=== PATIENT | male | born 1940 | race Two or more races ===

== ENCOUNTER 2025-06-30 20:03 | Inpatient (IN) | payer MEDICARE, OTHER ==
[~2025-06-30] VITALS: Ht 172.7 cm; Wt 68.0 kg
[2025-06-30 20:00] VITALS: BP 154/100; TEMP 98.8; O2SAT 97
[2025-06-30] MEDS ORDERED: ONDANSETRON HCL/PF 4 MG/2 ML VIAL IVP PRN (22:30)
[2025-06-30] MEDS ORDERED: MAGNESIUM HYDROXIDE 30 ML UDC PO PRN (22:30)
[2025-06-30] MEDS ORDERED: MAG HYDROX/AL HYDROX/SIMETH 30 ML UDC PO PRN (22:30)
[2025-06-30] MEDS: CEFTRIAXONE 1GM BAG (ER ONLY) 50 ML IV ONE (22:36)
[2025-06-30] MEDS: CEFTRIAXONE 1 G in IV D5W 50 ML IV SCH (22:47)
[2025-07-01 01:10] VITALS: BP 150/82; TEMP 98.7; O2SAT 97
[2025-07-01 05:00] VITALS: BP 150/82; TEMP 98.7; O2SAT 97
[2025-07-01] MEDS: BLOOD SUGAR DIAGNOSTIC 1 EACH STRIP IN SCH (06:43)
[2025-07-01] MEDS: INSULIN REGULAR, HUMAN 100 UNIT/ML 3 ML VIAL SQ PRN (06:44)
[2025-07-01 07:02] LABS: PLATELET COUNT (AUTO) 99 K/uL (150-450); RED BLOOD CELL COUNT(AUTO) 3.56 MIL/uL (4.5-6.0); RED CELL DISTRIBUTION WIDTH 16.2 % (11.5-15.0); WHITE BLOOD COUNT (AUTO) 5.6 K/uL (4.3-11.0)
[2025-07-01 07:11] LABS: LDL 89.0 mg/dL (0-99); SERUM AMMONIA 23.0 umol/L (11-32)
[2025-07-01 07:30] VITALS: BP 158/93; TEMP 98.2; O2SAT 97
[2025-07-01] MEDS: PANTOPRAZOLE 40 MG VIAL IV SCH (09:06)
[2025-07-01] MEDS: LACTULOSE 10 G/15 ML UDC (PYXIS) PO SCH (09:18)
[2025-07-01 12:01] LABS: EOSINOPHILS % (MANUAL) 5 % (0-4); LYMPHOCYTES % (MANUAL) 14 % (16-48); MONOCYTES % (MANUAL) 1 % (0-11.0); NEUTROPHILS % (MANUAL) 80 (42-76); PLATELET ESTIMATE DECREASED
[2025-07-01 13:29] LABS: CALCIUM, SERUM 8.3 mg/dL (8.5-10.1); CREATININE 1.3 mg/dL (0.6-1.3); PHOSPHORUS 3.5 mg/dL (2.5-4.9); UREA NITROGEN, BLOOD 15.0 mg/dL (7-18)
[2025-07-01 13:42] LABS: SODIUM SERUM 158.0 mmol/L (136-145)
[2025-07-01 16:00] VITALS: BP 146/82; TEMP 98.1; O2SAT 98
[2025-07-01] MEDS: IV 1/2NS 1000 ML 1,000 ML IV SCH (16:37)
[2025-07-01] MEDS: POTASSIUM CHLORIDE 20 MEQ TAB.PRT.SR PO ONE (16:37)
[2025-07-01 21:01] VITALS: BP 134/72; TEMP 98.4; O2SAT 98
[2025-07-02 04:00] VITALS: BP 141/61; TEMP 97.5; O2SAT 98
[2025-07-02 07:23] LABS: PLATELET COUNT (AUTO) 95 K/uL (150-450); RED BLOOD CELL COUNT(AUTO) 3.49 MIL/uL (4.5-6.0); RED CELL DISTRIBUTION WIDTH 15.8 % (11.5-15.0); WHITE BLOOD COUNT (AUTO) 5.7 K/uL (4.3-11.0)
[2025-07-02 07:36] LABS: CALCIUM, SERUM 7.8 mg/dL (8.5-10.1); CREATININE 1.2 mg/dL (0.6-1.3); PHOSPHORUS 2.7 mg/dL (2.5-4.9); UREA NITROGEN, BLOOD 17.0 mg/dL (7-18)
[2025-07-02 08:00] VITALS: BP 134/64; TEMP 97.9; O2SAT 94
[2025-07-02 08:26] LABS: SODIUM SERUM 156.0 mmol/L (136-145)
[2025-07-02] MEDS: IV D5W 1,000 ML IV PRN (09:27)
[2025-07-02 11:03] LABS: EOSINOPHILS % (MANUAL) 5 % (0-4); LYMPHOCYTES % (MANUAL) 10 % (16-48); MONOCYTES % (MANUAL) 2 % (0-11.0); NEUTROPHILS % (MANUAL) 83 (42-76); PLATELET ESTIMATE DECREASED
[2025-07-02 12:00] VITALS: BP 135/65; TEMP 98.1; O2SAT 98
[2025-07-02 16:00] VITALS: BP 124/65; TEMP 98.1; O2SAT 100
[2025-07-02] MEDS ORDERED: DAPA10TA PO (16:49)
[2025-07-02] MEDS ORDERED: SITA100T PO (16:49)
[2025-07-02] MEDS ORDERED: ACET-2812 PO (16:49)
[2025-07-02] MEDS ORDERED: METF-442 PO (16:49)
[2025-07-02] MEDS: IV 1/2NS 1000 ML 1,000 ML IV PRN (18:01)
[2025-07-02 20:00] VITALS: BP 118/77; TEMP 98.1; O2SAT 97
[2025-07-02] MEDS ORDERED: CEFEPIME 1 GM VIAL ONE (21:31)
[2025-07-02] MEDS: CEFEPIME 1 GM in IV D5W 50 ML IV SCH (21:42)
[2025-07-02] MEDS: DEXTROSE 50%-WATER 50 ML DISP.SYRIN IV PRN (22:07)
[2025-07-03] VITALS (9 sets, daily range): BP systolic 110–130; BP diastolic 51–72; TEMP 97.7–100.9; O2SAT 92–98
[2025-07-03 06:21] LABS: PLATELET COUNT (AUTO) 77 K/uL (150-450); RED BLOOD CELL COUNT(AUTO) 3.47 MIL/uL (4.5-6.0); RED CELL DISTRIBUTION WIDTH 15.4 % (11.5-15.0); WHITE BLOOD COUNT (AUTO) 4.0 K/uL (4.3-11.0)
[2025-07-03 06:37] LABS: CALCIUM, SERUM 7.5 mg/dL (8.5-10.1); CREATININE 1.3 mg/dL (0.6-1.3); SODIUM SERUM 151.0 mmol/L (136-145); UREA NITROGEN, BLOOD 15.0 mg/dL (7-18)
[2025-07-03 07:24] LABS: LYMPHOCYTES % (MANUAL) 4 % (16-48); MONOCYTES % (MANUAL) 3 % (0-11.0); NEUTROPHILS % (MANUAL) 91 (42-76); PLATELET ESTIMATE DECREASED
[2025-07-03] MEDS: PANTOPRAZOLE 40 MG TABLET.DR PO SCH (10:14)
[2025-07-03] MEDS: ACETAMINOPHEN 325 MG TABLET PO PRN (10:21)
[2025-07-03 14:52] LABS: APPEARANCE,URINE CLEAR (CLEAR); BLOOD, URINE TRACE-INTA Ery/uL (NEGATIVE); LEUKOCYTE ESTERASE ,URINE 3+ (NEGATIVE); NITRITE, URINE NEGATIVE (NEGATIVE); UGLUCOSE NEGATIVE (NEGATIVE)
[2025-07-03 14:58] LABS: ADD URINE CULTURE YES
[2025-07-04] VITALS (9 sets, daily range): BP systolic 114–128; BP diastolic 60–96; TEMP 98.1–99.9; O2SAT 93–98
[2025-07-04 05:54] LABS: PLATELET COUNT (AUTO) 65 K/uL (150-450); RED BLOOD CELL COUNT(AUTO) 3.06 MIL/uL (4.5-6.0); RED CELL DISTRIBUTION WIDTH 15.7 % (11.5-15.0); WHITE BLOOD COUNT (AUTO) 3.9 K/uL (4.3-11.0)
[2025-07-04 06:04] LABS: CALCIUM, SERUM 7.3 mg/dL (8.5-10.1); CREATININE 1.5 mg/dL (0.6-1.3); SODIUM SERUM 154.0 mmol/L (136-145); UREA NITROGEN, BLOOD 25.0 mg/dL (7-18)
[2025-07-04] MEDS: D5W IV ONE (09:03)
[2025-07-04 09:24] LABS: BASOPHILS % (MANUAL) 0 % (0.0-2.0); EOSINOPHILS % (MANUAL) 0 % (0-4); LYMPHOCYTES % (MANUAL) 8 % (16-48); MONOCYTES % (MANUAL) 2 % (0-11.0); NEUTROPHILS % (MANUAL) 90 (42-76); PLATELET ESTIMATE DECREASED
[2025-07-04] MEDS: ALBUMIN 25% 25 GM in PREMIX 1 EA IV SCH (10:20)
[2025-07-04] MEDS: THERAHONEY GEL 1.5 OZ TUBE TP SCH (10:21)
[2025-07-04] MEDS: IV D5W 1,000 ML IV PRN (16:54)
[2025-07-04] MEDS: ALBUTEROL FS 2.5 MG/3 ML VIAL.NEB NEB PRN (17:37)
[2025-07-05] VITALS (21 sets, daily range): BP systolic 90–116; BP diastolic 46–103; TEMP 98.1–98.9; O2SAT 90–100
[2025-07-05 05:30] LABS: ABG BASE EXCESS -9.0 mmol/L (-2.0-3.0); ABG OXYGEN SATURATION 86.9 % (94.0-98.0); ABG PCO2 19.7 mmHg (35.0-48.0); ABG PH 7.450 (7.350-7.450); ABG PO2 53.1 mmHg (83.0-108.0); ABG TOTAL HEMOGLOBIN 9.5 G/dL (13.5-17.5); FLOW, BLOOD GAS 2.00 L/min (0.00-30.00); FRACTIONATED INSPIRED OXYGEN 28.0 %; SITE, ABG RIGHT RADIAL
[2025-07-05 07:35] LABS: PLATELET COUNT (AUTO) 57 K/uL (150-450); RED BLOOD CELL COUNT(AUTO) 2.82 MIL/uL (4.5-6.0); RED CELL DISTRIBUTION WIDTH 16.2 % (11.5-15.0); WHITE BLOOD COUNT (AUTO) 2.7 K/uL (4.3-11.0)
[2025-07-05 07:42] LABS: CALCIUM, SERUM 7.6 mg/dL (8.5-10.1); CREATININE 1.5 mg/dL (0.6-1.3); SODIUM SERUM 153.0 mmol/L (136-145); UREA NITROGEN, BLOOD 27.0 mg/dL (7-18)
[2025-07-05] MEDS: IPRATROPIUM NEB FS 0.5 MG/2.5 ML AMPUL.NEB NEB SCH (10:00)
[2025-07-05] MEDS ORDERED: DOSING PER PHARMACY-VANCOMYCIN IV XX PRN (10:00)
[2025-07-05] MEDS: ALBUTEROL HALF STRENGTH 1.25 MG/3 ML VIAL.NEB NEB SCH (10:00)
[2025-07-05 10:11] LABS: EOSINOPHILS % (MANUAL) 2 % (0-4); LYMPHOCYTES % (MANUAL) 9 % (16-48); MONOCYTES % (MANUAL) 6 % (0-11.0); NEUTROPHILS % (MANUAL) 83 (42-76); PLATELET ESTIMATE DECREASED
[2025-07-05] MEDS: VANCOMYCIN 750 MG in IV D5W 250 ML IV SCH (10:27)
[2025-07-05] MEDS: IV D5W 1,000 ML IV ONE (13:44)
[2025-07-05] MEDS: CEFEPIME 2 GM in IV D5W 100 ML IV SCH (20:47)
[2025-07-05 20:56] LABS: ABG BASE EXCESS -7.4 mmol/L (-2.0-3.0); ABG OXYGEN SATURATION 82.3 % (94.0-98.0); ABG PCO2 20.4 mmHg (35.0-48.0); ABG PH 7.472 (7.350-7.450); ABG PO2 44.6 mmHg (83.0-108.0); ABG TOTAL HEMOGLOBIN 10.2 G/dL (13.5-17.5); FLOW, BLOOD GAS 10.00 L/min (0.00-30.00); FRACTIONATED INSPIRED OXYGEN 60.0 %; SITE, ABG RIGHT RADIAL
[2025-07-06] VITALS (65 sets, daily range): BP systolic 79–135; BP diastolic 45–118; TEMP 98–98.8; O2SAT 88–100
[2025-07-06 05:03] LABS: SERUM AMMONIA 25.0 umol/L (11-32)
[2025-07-06 05:05] LABS: PLATELET COUNT (AUTO) 62 K/uL (150-450); RED BLOOD CELL COUNT(AUTO) 2.94 MIL/uL (4.5-6.0); RED CELL DISTRIBUTION WIDTH 16.1 % (11.5-15.0); WHITE BLOOD COUNT (AUTO) 4.7 K/uL (4.3-11.0)
[2025-07-06 05:51] LABS: IRON, SERUM 13.0 ug/dl (50-175)
[2025-07-06 05:52] LABS: LYMPHOCYTES % (MANUAL) 10 % (16-48); MONOCYTES % (MANUAL) 5 % (0-11.0); NEUTROPHILS % (MANUAL) 85 (42-76); PLATELET ESTIMATE DECREASED
[2025-07-06 06:12] LABS: ASPARTATE AMINOTRANSFERASE 77.0 U/L (15-37); CALCIUM, SERUM 7.3 mg/dL (8.5-10.1); CREATININE 1.2 mg/dL (0.6-1.3); PHOSPHORUS 1.2 mg/dL (2.5-4.9); SODIUM SERUM 147.0 mmol/L (136-145); TOTAL PROTEIN, SERUM 5.0 g/dL (6.4-8.2); UREA NITROGEN, BLOOD 25.0 mg/dL (7-18)
[2025-07-06] MEDS: VANCOMYCIN 1 GM in IV D5W 250 ML IV SCH (09:17)
[2025-07-06 09:19] LABS: ABG BASE EXCESS -7.5 mmol/L (-2.0-3.0); ABG OXYGEN SATURATION 83.0 % (94.0-98.0); ABG PCO2 22.6 mmHg (35.0-48.0); ABG PH 7.444 (7.350-7.450); ABG PO2 47.3 mmHg (83.0-108.0); ABG TOTAL HEMOGLOBIN 9.6 G/dL (13.5-17.5); FLOW, BLOOD GAS 10.00 L/min (0.00-30.00); FRACTIONATED INSPIRED OXYGEN 60.0 %
[2025-07-06] MEDS: ACETAMINOPHEN 650 MG/SUPP.RECT RC PRN (09:25)
[2025-07-06] MEDS: ALBUMIN 25% 25 GM in PREMIX 1 EA IV SCH (14:35)
[2025-07-06] MEDS: NOREPINEPHRINE 8 MG in IV NS 0.9% 242 ML IV PRN (14:55)
[2025-07-06] MEDS: Sodium Phosphate 15 MMOL in IV NS 0.9% 245 ML IV SCH (16:12)
[2025-07-07] VITALS (95 sets, daily range): BP systolic 79–147; BP diastolic 44–93; TEMP 97.6–98.6; O2SAT 58–100
[2025-07-07 04:31] LABS: PLATELET COUNT (AUTO) 85 K/uL (150-450); RED BLOOD CELL COUNT(AUTO) 3.48 MIL/uL (4.5-6.0); RED CELL DISTRIBUTION WIDTH 17.0 % (11.5-15.0); WHITE BLOOD COUNT (AUTO) 5.0 K/uL (4.3-11.0)
[2025-07-07 04:56] LABS: CALCIUM, SERUM 6.9 mg/dL (8.5-10.1); CREATININE 1.2 mg/dL (0.6-1.3); PHOSPHORUS 2.9 mg/dL (2.5-4.9); SODIUM SERUM 147.0 mmol/L (136-145); UREA NITROGEN, BLOOD 26.0 mg/dL (7-18)
[2025-07-07 05:08] LABS: ASPARTATE AMINOTRANSFERASE 71.0 U/L (15-37); TOTAL PROTEIN, SERUM 5.0 g/dL (6.4-8.2)
[2025-07-07 05:09] LABS: SERUM AMMONIA 29.0 umol/L (11-32)
[2025-07-07 05:35] LABS: EOSINOPHILS % (MANUAL) 1 % (0-4); LYMPHOCYTES % (MANUAL) 12 % (16-48); MONOCYTES % (MANUAL) 4 % (0-11.0); NEUTROPHILS % (MANUAL) 83 (42-76); PLATELET ESTIMATE DECREASED
[2025-07-07] MEDS: VANCOMYCIN HCL 1.25 GM in IV D5W 250 ML IV SCH (09:12)
[2025-07-07 10:03] LABS: ABG BASE EXCESS -15.2 mmol/L (-2.0-3.0); ABG OXYGEN SATURATION 85.3 % (94.0-98.0); ABG PCO2 33.0 mmHg (35.0-48.0); ABG PH 7.179 (7.350-7.450); ABG PO2 58.0 mmHg (83.0-108.0); ABG TOTAL HEMOGLOBIN 11.9 G/dL (13.5-17.5); FLOW, BLOOD GAS 60.00 L/min (0.00-30.00); FRACTIONATED INSPIRED OXYGEN 90.0 %
[2025-07-07 13:56] LABS: ABG BASE EXCESS -15.7 mmol/L (-2.0-3.0); ABG OXYGEN SATURATION 96.7 % (94.0-98.0); ABG PCO2 28.3 mmHg (35.0-48.0); ABG PH 7.201 (7.350-7.450); ABG PO2 112.5 mmHg (83.0-108.0); ABG TOTAL HEMOGLOBIN 11.4 G/dL (13.5-17.5); FRACTIONATED INSPIRED OXYGEN 100.0 %; SET RATE, BG 18.0; SITE, ABG LEFT RADIAL
[2025-07-07] MEDS: SODIUM BICARBONATE SYR 50 MEQ/50 ML DISP.SYRIN IV ONE (15:03)
[2025-07-07] MEDS: Sodium Bicarbonate 100 MEQ in IV D5 / 0.2% NACL 1,000 ML IV SCH (15:29)
[2025-07-07 17:29] LABS: ABG BASE EXCESS -13.3 mmol/L (-2.0-3.0); ABG OXYGEN SATURATION 94.4 % (94.0-98.0); ABG PCO2 37.3 mmHg (35.0-48.0); ABG PH 7.191 (7.350-7.450); ABG PO2 83.7 mmHg (83.0-108.0); ABG TOTAL HEMOGLOBIN 11.2 G/dL (13.5-17.5); FRACTIONATED INSPIRED OXYGEN 100.0 %; SET RATE, BG 18.0; SITE, ABG LEFT BRACHIAL
[2025-07-07] MEDS: ALBUTEROL FS 2.5 MG/0.5 ML VIAL.NEB NEB ONE (18:30)
[2025-07-07 20:55] LABS: ABG BASE EXCESS -17.1 mmol/L (-2.0-3.0); ABG OXYGEN SATURATION 95.7 % (94.0-98.0); ABG PCO2 31.2 mmHg (35.0-48.0); ABG PH 7.147 (7.350-7.450); ABG PO2 97.0 mmHg (83.0-108.0); ABG TOTAL HEMOGLOBIN 11.0 G/dL (13.5-17.5); FRACTIONATED INSPIRED OXYGEN 100.0 %; SET RATE, BG 18.0; SITE, ABG LEFT RADIAL
[2025-07-08] VITALS (103 sets, daily range): BP systolic 76–150; BP diastolic 21–94; TEMP 96.4–98; O2SAT 92–100
[2025-07-08 01:05] LABS: ABG BASE EXCESS -16.3 mmol/L (-2.0-3.0); ABG OXYGEN SATURATION 94.7 % (94.0-98.0); ABG PCO2 31.6 mmHg (35.0-48.0); ABG PH 7.163 (7.350-7.450); ABG PO2 87.2 mmHg (83.0-108.0); ABG TOTAL HEMOGLOBIN 10.7 G/dL (13.5-17.5); FRACTIONATED INSPIRED OXYGEN 100.0 %; SET RATE, BG 18.0; SITE, ABG LEFT RADIAL
[2025-07-08 04:54] LABS: PLATELET COUNT (AUTO) 62 K/uL (150-450); RED BLOOD CELL COUNT(AUTO) 3.12 MIL/uL (4.5-6.0); RED CELL DISTRIBUTION WIDTH 17.7 % (11.5-15.0); WHITE BLOOD COUNT (AUTO) 7.1 K/uL (4.3-11.0)
[2025-07-08 04:58] LABS: CALCIUM, SERUM 6.8 mg/dL (8.5-10.1); CREATININE 2.2 mg/dL (0.6-1.3); SODIUM SERUM 145.0 mmol/L (136-145); UREA NITROGEN, BLOOD 43.0 mg/dL (7-18)
[2025-07-08 05:05] LABS: SERUM AMMONIA 27.0 umol/L (11-32)
[2025-07-08 05:10] LABS: ASPARTATE AMINOTRANSFERASE 119.0 U/L (15-37); PHOSPHORUS 3.7 mg/dL (2.5-4.9); TOTAL PROTEIN, SERUM 4.5 g/dL (6.4-8.2)
[2025-07-08 06:18] LABS: LYMPHOCYTES % (MANUAL) 5 % (16-48); MONOCYTES % (MANUAL) 4 % (0-11.0); NEUTROPHILS % (MANUAL) 91 (42-76); PLATELET ESTIMATE DECREASED
[2025-07-08] MEDS: DAPAGLIFLOZIN PROPANEDIOL 10 MG TABLET PO SCH (08:05)
[2025-07-08 08:38] LABS: ABG BASE EXCESS -12.2 mmol/L (-2.0-3.0); ABG OXYGEN SATURATION 95.0 % (94.0-98.0); ABG PCO2 35.4 mmHg (35.0-48.0); ABG PH 7.228 (7.350-7.450); ABG PO2 87.2 mmHg (83.0-108.0); ABG TOTAL HEMOGLOBIN 10.0 G/dL (13.5-17.5); FRACTIONATED INSPIRED OXYGEN 100.0 %; SET RATE, BG 18.0; SITE, ABG LEFT BRACHIAL
[2025-07-08] MEDS: PROPOFOL 100 ML IV PRN (09:41)
[2025-07-08] MEDS ORDERED: ETOMIDATE 2 MG/ML VIAL IV ONE (10:00)
[2025-07-08] MEDS ORDERED: SUCCINYLCHOLINE CHLORIDE 20 MG/ML VIAL IV ONE (10:00)
[2025-07-08 10:43] LABS: ABG BASE EXCESS -15.4 mmol/L (-2.0-3.0); ABG OXYGEN SATURATION 94.1 % (94.0-98.0); ABG PCO2 56.7 mmHg (35.0-48.0); ABG PH 7.039 (7.350-7.450); ABG PO2 94.7 mmHg (83.0-108.0); ABG TOTAL HEMOGLOBIN 10.7 G/dL (13.5-17.5); FRACTIONATED INSPIRED OXYGEN 100.0 %; PEEP,BG 5 cm H2O; SET RATE, BG 26.0; SITE, ABG PL; VT, ABG 475 mL
[2025-07-08 13:10] LABS: ABG BASE EXCESS -16.4 mmol/L (-2.0-3.0); ABG OXYGEN SATURATION 97.8 % (94.0-98.0); ABG PCO2 42.1 mmHg (35.0-48.0); ABG PH 7.092 (7.350-7.450); ABG PO2 139.4 mmHg (83.0-108.0); ABG TOTAL HEMOGLOBIN 10.3 G/dL (13.5-17.5); FRACTIONATED INSPIRED OXYGEN 100.0 %; PEEP,BG 5 cm H2O; SET RATE, BG 26.0; SITE, ABG LEFT RADIAL; VT, ABG 550 mL
[2025-07-08] MEDS: Sodium Bicarbonate 150 MEQ in IV D5 / 0.2% NACL 1,000 ML IV SCH (14:15)
[2025-07-08 15:11] LABS: ABG BASE EXCESS -16.7 mmol/L (-2.0-3.0); ABG OXYGEN SATURATION 94.1 % (94.0-98.0); ABG PCO2 44.7 mmHg (35.0-48.0); ABG PH 7.071 (7.350-7.450); ABG PO2 89.0 mmHg (83.0-108.0); ABG TOTAL HEMOGLOBIN 10.1 G/dL (13.5-17.5); FRACTIONATED INSPIRED OXYGEN 80.0 %; PEEP,BG 5 cm H2O; SET RATE, BG 26.0; VT, ABG 575 mL
[2025-07-08] MEDS: SODIUM BICARBONATE SYR 50 MEQ/50 ML DISP.SYRIN IV ONE (15:27)
[2025-07-08 17:59] LABS: APPEARANCE,URINE SLIGHTLY CLOUDY (CLEAR); BLOOD, URINE 3+ Ery/uL (NEGATIVE); LEUKOCYTE ESTERASE ,URINE 1+ (NEGATIVE); NITRITE, URINE NEGATIVE (NEGATIVE); UGLUCOSE NEGATIVE (NEGATIVE)
[2025-07-08 18:00] LABS: CREATININE, URINE 104.6 MG/DL (30.0-125.0); URINE SODIUM, RANDOM 42.0 mmol/l (40-220); URINE TOTAL PROTEIN 229.5 mg/dL (0-11.9)
[2025-07-08] MEDS: BLOOD SUGAR DIAGNOSTIC 1 EACH STRIP IN SCH (18:01)
[2025-07-08 18:24] LABS: ADD URINE CULTURE YES; SQUAMOUS EPITHELIAL CELL,UR Moderate /HPF (None Seen); URINE AMORPHOUS URATE Moderate /HPF (None Seen)
[2025-07-08 19:07] LABS: EOSINOPHIL,URINE None Seen; YEAST,URINE Few /HPF (None Seen)
[2025-07-08 20:18] LABS: ABG BASE EXCESS -2.0 mmol/L (-2.0-3.0); ABG OXYGEN SATURATION 95.9 % (94.0-98.0); ABG PCO2 44.0 mmHg (35.0-48.0); ABG PH 7.348 (7.350-7.450); ABG PO2 84.4 mmHg (83.0-108.0); ABG TOTAL HEMOGLOBIN 10.3 G/dL (13.5-17.5); FRACTIONATED INSPIRED OXYGEN 80.0 %; PEEP,BG 5 cm H2O; SET RATE, BG 28.0; SITE, ABG RIGHT RADIAL; VT, ABG 600 mL
[2025-07-08] MEDS: VANCOMYCIN 750 MG in IV D5W 250 ML IV SCH (21:32)
[2025-07-08] MEDS: INSULIN REGULAR, HUMAN 100 UNIT/ML 3 ML VIAL SQ PRN (23:54)
[2025-07-09] VITALS (100 sets, daily range): BP systolic 53–139; BP diastolic 32–62; TEMP 97.4–98; O2SAT 90–100
[2025-07-09 05:02] LABS: PLATELET COUNT (AUTO) 89 K/uL (150-450); RED BLOOD CELL COUNT(AUTO) 2.67 MIL/uL (4.5-6.0); RED CELL DISTRIBUTION WIDTH 16.1 % (11.5-15.0); WHITE BLOOD COUNT (AUTO) 15.4 K/uL (4.3-11.0)
[2025-07-09 05:23] LABS: ASPARTATE AMINOTRANSFERASE 413.0 U/L (15-37); CALCIUM, SERUM 6.1 mg/dL (8.5-10.1); CREATININE 2.0 mg/dL (0.6-1.3); PHOSPHORUS 2.9 mg/dL (2.5-4.9); SODIUM SERUM 138.0 mmol/L (136-145); TOTAL PROTEIN, SERUM 4.0 g/dL (6.4-8.2); UREA NITROGEN, BLOOD 30.0 mg/dL (7-18)
[2025-07-09 05:56] LABS: LYMPHOCYTES % (MANUAL) 2 % (16-48); MONOCYTES % (MANUAL) 2 % (0-11.0); NEUTROPHILS % (MANUAL) 96 (42-76); PLATELET ESTIMATE DECREASED
[2025-07-09 09:28] LABS: ABG BASE EXCESS -3.7 mmol/L (-2.0-3.0); ABG OXYGEN SATURATION 92.3 % (94.0-98.0); ABG PCO2 38.8 mmHg (35.0-48.0); ABG PH 7.360 (7.350-7.450); ABG PO2 72.1 mmHg (83.0-108.0); ABG TOTAL HEMOGLOBIN 8.9 G/dL (13.5-17.5); FRACTIONATED INSPIRED OXYGEN 65.0 %; PEEP,BG 5 cm H2O; SET RATE, BG 28.0; SITE, ABG LEFT RADIAL; VT, ABG 600 mL
[2025-07-09] MEDS: IV NS 0.9% 1,000 ML IV SCH (10:19)
[2025-07-09] MEDS: Z GUARD REMEDY 4 OZ OINT TP PRN (11:48)
[2025-07-09] MEDS: NOREPINEPHRINE 32 MG in IV NS 0.9% 250 ML IV PRN ×2 (12:34→14:18)
[2025-07-09] MEDS: BUMETANIDE INJ 0.25 MG/ML VIAL IV ONE (13:51)
[2025-07-09] MEDS: ALBUMIN 25% 25 GM in PREMIX 1 EA IV PRN (18:02)
[2025-07-09] MEDS: MEROPENEM 500 MG in IV NS 0.9% 50 ML IV ONE (20:50)
[2025-07-09] MEDS: MEROPENEM 500MG/NS 50 ML PB IV ONE (20:51)
[2025-07-09] MEDS: NEPRO 1,000 ML BOTTLE GT PRN (22:55)
[2025-07-10] VITALS (98 sets, daily range): BP systolic 65–129; BP diastolic 35–65; TEMP 97.4–98.2; O2SAT 90–100
[2025-07-10 04:50] LABS: PLATELET COUNT (AUTO) 70 K/uL (150-450); RED BLOOD CELL COUNT(AUTO) 2.28 MIL/uL (4.5-6.0); RED CELL DISTRIBUTION WIDTH 16.6 % (11.5-15.0); WHITE BLOOD COUNT (AUTO) 12.8 K/uL (4.3-11.0)
[2025-07-10 05:23] LABS: CALCIUM, SERUM 6.4 mg/dL (8.5-10.1); CREATININE 2.1 mg/dL (0.6-1.3); PHOSPHORUS 3.4 mg/dL (2.5-4.9); SODIUM SERUM 142 mmol/L (136-145); TOTAL PROTEIN, SERUM 4.1 g/dL (6.4-8.2); UREA NITROGEN, BLOOD 30 mg/dL (7-18)
[2025-07-10 06:03] LABS: SERUM AMMONIA 47 umol/L (11-32)
[2025-07-10 06:20] LABS: ASPARTATE AMINOTRANSFERASE 348 U/L (15-37)
[2025-07-10] MEDS: MEROPENEM 500 MG in IV NS 0.9% 50 ML IV SCH (08:09)
[2025-07-10] MEDS ORDERED: CEFEPIME 1 GM in IV D5W 50 ML IV SCH (09:00)
[2025-07-10 09:27] LABS: ABG BASE EXCESS -7.2 mmol/L (-2.0-3.0); ABG OXYGEN SATURATION 84.0 % (94.0-98.0); ABG PCO2 89.0 mmHg (35.0-48.0); ABG PH 7.044 (7.350-7.450); ABG PO2 62.2 mmHg (83.0-108.0); ABG TOTAL HEMOGLOBIN 8.6 G/dL (13.5-17.5); FRACTIONATED INSPIRED OXYGEN 65.0 %; PEEP,BG 8 cm H2O; SET RATE, BG 20.0; SITE, ABG RIGHT RADIAL; VT, ABG 450 mL
[2025-07-10] MEDS: LACTULOSE 10 G/15 ML UDC (PYXIS) PO SCH (11:36)
[2025-07-10 11:42] LABS: ABG BASE EXCESS -7.9 mmol/L (-2.0-3.0); ABG OXYGEN SATURATION 87.7 % (94.0-98.0); ABG PCO2 68.8 mmHg (35.0-48.0); ABG PH 7.114 (7.350-7.450); ABG PO2 65.1 mmHg (83.0-108.0); ABG TOTAL HEMOGLOBIN 8.5 G/dL (13.5-17.5); FRACTIONATED INSPIRED OXYGEN 65.0 %; PEEP,BG 10 cm H2O; SET RATE, BG 26.0; SITE, ABG LEFT RADIAL; VT, ABG 500 mL
[2025-07-10 11:45] LABS: BASOPHILS % (MANUAL) 0 % (0.0-2.0); EOSINOPHILS % (MANUAL) 0 % (0-4); LYMPHOCYTES % (MANUAL) 3 % (16-48); MONOCYTES % (MANUAL) 6 % (0-11.0); NEUTROPHILS % (MANUAL) 91 (42-76); PLATELET ESTIMATE DECREASED
[2025-07-10] MEDS ORDERED: VANCOMYCIN POST DIALYSIS 500MG IV PRN (17:00)
[2025-07-11] VITALS (34 sets, daily range): BP systolic 34–121; BP diastolic 12–72; TEMP 97.1–98.5; O2SAT 54–97
[2025-07-11] MEDS: DEXTROSE 50%-WATER 50 ML DISP.SYRIN IV PRN (00:42)
[2025-07-11] MEDS: PHENYLEPHRINE 50 MG in IV NS 0.9% 245 ML IV PRN (04:56)
[2025-07-11] MEDS: HYDROCORTISONE SOD SUCCINATE 100 MG/2 ML VIAL IV ONE (04:59)
[2025-07-11 05:01] LABS: ABG BASE EXCESS -24.2 mmol/L (-2.0-3.0); ABG OXYGEN SATURATION 88.1 % (94.0-98.0); ABG PCO2 47.3 mmHg (35.0-48.0); ABG PH 6.827 (7.350-7.450); ABG PO2 80.6 mmHg (83.0-108.0); ABG TOTAL HEMOGLOBIN 5.8 G/dL (13.5-17.5); FRACTIONATED INSPIRED OXYGEN 100.0 %; PEEP,BG 14 cm H2O; SET RATE, BG 28.0; VT, ABG 500 mL
[2025-07-11 05:01] LABS: TOTAL PROTEIN, SERUM 4.1 g/dL (6.4-8.2)
[2025-07-11 05:04] LABS: SODIUM SERUM 130 mmol/L (136-145)
[2025-07-11 05:05] LABS: UREA NITROGEN, BLOOD 26 mg/dL (7-18)
[2025-07-11] MEDS: SODIUM BICARBONATE SYR 50 MEQ/50 ML DISP.SYRIN IV ONE ×2 (05:05→08:20)
[2025-07-11 05:06] LABS: PHOSPHORUS 8.8 mg/dL (2.5-4.9)
[2025-07-11 05:08] LABS: PLATELET COUNT (AUTO) 51 K/uL (150-450); RED BLOOD CELL COUNT(AUTO) 1.80 MIL/uL (4.5-6.0); RED CELL DISTRIBUTION WIDTH 17.7 % (11.5-15.0); WHITE BLOOD COUNT (AUTO) 15.9 K/uL (4.3-11.0)
[2025-07-11] MEDS: SODIUM BICARBONATE SYR 50 MEQ/50 ML DISP.SYRIN ONE (05:19)
[2025-07-11 05:20] LABS: SERUM AMMONIA 104 umol/L (11-32)
[2025-07-11] MEDS: PHENYLEPHRINE 10 MG/ML VIAL ONE (05:20)
[2025-07-11 05:22] LABS: CREATININE 2.6 mg/dL (0.6-1.3)
[2025-07-11 05:28] LABS: CALCIUM, SERUM 7.5 mg/dL (8.5-10.1)
[2025-07-11] MEDS ORDERED: Calcium Gluconate 1GM/10ML 4.65 MEQ in IV NS 0.9% 100 ML IV ONE (05:30)
[2025-07-11 05:46] LABS: ASPARTATE AMINOTRANSFERASE > 1000 U/L (15-37)
[2025-07-11] MEDS: Sodium Bicarbonate 100 MEQ in IV D5W 1,000 ML IV SCH (05:48)
[2025-07-11] MEDS: IV 10% DEXTROSE 1,000 ML IV SCH (05:48)
[2025-07-11] MEDS ORDERED: VASOPRESSIN INJ 40 UNIT in IV NS 0.9% 38 ML IV PRN (06:00)
[2025-07-11 06:09] LABS: LYMPHOCYTES % (MANUAL) 6 % (16-48); MONOCYTES % (MANUAL) 2 % (0-11.0); NEUTROPHILS % (MANUAL) 92 (42-76); PLATELET ESTIMATE DECREASED
[2025-07-11] MEDS: VASOPRESSIN INJ 40 UNIT in IV NS 0.9% 38 ML IV PRN (06:25)
[2025-07-11] MEDS: VASOPRESSIN INJ 20 UNIT/ML VIAL ONE (06:39)
[2025-07-11] MEDS: PHENYLEPHRINE 100 MG in IV NS 0.9% 240 ML IV PRN (07:24)
[2025-07-11 07:35] LABS: RED CELL DISTRIBUTION WIDTH 17.9 % (11.5-15.0); WHITE BLOOD COUNT (AUTO) 12.7 K/uL (4.3-11.0)
[2025-07-11 07:46] LABS: RED BLOOD CELL COUNT(AUTO) 1.22 MIL/uL (4.5-6.0)
[2025-07-11 07:51] LABS: PLATELET COUNT (AUTO) 39 K/uL (150-450)
[2025-07-11 07:56] LABS: CALCIUM, SERUM 7.7 mg/dL (8.5-10.1); CREATININE 2.9 mg/dL (0.6-1.3); SODIUM SERUM 138.0 mmol/L (136-145); UREA NITROGEN, BLOOD 28.0 mg/dL (7-18)
[2025-07-11] MEDS ORDERED: Sodium Bicarbonate 100 MEQ in IV D5W 1,000 ML IV PRN (08:00)
[2025-07-11] MEDS: IV NS 0.9% 1,000 ML BAG IV PRN (08:10)
[2025-07-11 17:07] LABS: HEPATITIS B CORE AB, TOTAL Negative (Negative)
== END 2025-07-11 08:40 | DRG 441 ==
LOC: MED 20:03 → TELE 22:22 → ICU 07-05 09:40
PROVIDERS: ADMIT Nurse Practitioner Acute Care; ATTEND Nurse Practitioner Family
PROC: 5A09357 Assistance with Respiratory Ventilation, Less than 24 Consecutive Hours, Continuous Positive Airway Pressure (ICD-10-PCS; principal; 2025-07-07)
PROC: 5A1D70Z Performance of Urinary Filtration, Intermittent, Less than 6 Hours Per Day (ICD-10-PCS; 2025-07-08)
PROC: 5A1945Z Respiratory Ventilation, 24-96 Consecutive Hours (ICD-10-PCS; 2025-07-08)
PROC: 0BH17EZ Insertion of Endotracheal Airway into Trachea, Via Natural or Artificial Opening (ICD-10-PCS; 2025-07-08)
PROC: 05HM33Z Insertion of Infusion Device into Right Internal Jugular Vein, Percutaneous Approach (ICD-10-PCS; 2025-07-08)
PROC: 0JHL3XZ Insertion of Tunneled Vascular Access Device into Right Upper Leg Subcutaneous Tissue and Fascia, Percutaneous Approach (ICD-10-PCS; 2025-07-08)
PROC: 06HM33Z Insertion of Infusion Device into Right Femoral Vein, Percutaneous Approach (ICD-10-PCS; 2025-07-08)
DX: K76.82 Hepatic encephalopathy (principal); A41.9 Sepsis, unspecified organism; J15.9 Unspecified bacterial pneumonia; J96.01 Acute respiratory failure with hypoxia; N17.0 Acute kidney failure with tubular necrosis; R65.21 Severe sepsis with septic shock; E44.0 Moderate protein-calorie malnutrition; Z66 Do not resuscitate; K92.2 Gastrointestinal hemorrhage, unspecified; D61.818 Other pancytopenia; N39.0 Urinary tract infection, site not specified; D69.6 Thrombocytopenia, unspecified; S51.811A Laceration without foreign body of right forearm, initial encounter; B96.89 Other specified bacterial agents as the cause of diseases classified elsewhere; I46.9 Cardiac arrest, cause unspecified; F09 Unspecified mental disorder due to known physiological condition; K72.10 Chronic hepatic failure without coma; M05.10 Rheumatoid lung disease with rheumatoid arthritis of unspecified site; E11.40 Type 2 diabetes mellitus with diabetic neuropathy, unspecified; F03.90 Unspecified dementia, unspecified severity, without behavioral disturbance, psychotic disturbance, mood disturbance, and anxiety; I10 Essential (primary) hypertension; E87.0 Hyperosmolality and hypernatremia; E87.20 Acidosis, unspecified; L97.312 Non-pressure chronic ulcer of right ankle with fat layer exposed; E88.09 Other disorders of plasma-protein metabolism, not elsewhere classified; E11.9 Type 2 diabetes mellitus without complications; M06.9 Rheumatoid arthritis, unspecified; K74.60 Unspecified cirrhosis of liver; R29.6 Repeated falls; E80.6 Other disorders of bilirubin metabolism; N40.0 Benign prostatic hyperplasia without lower urinary tract symptoms; E78.5 Hyperlipidemia, unspecified; R26.9 Unspecified abnormalities of gait and mobility; M89.8X9 Other specified disorders of bone, unspecified site; E86.1 Hypovolemia; E11.622 Type 2 diabetes mellitus with other skin ulcer; Z78.1 Physical restraint status; Y95 Nosocomial condition; Z79.899 Other long term (current) drug therapy; Z79.84 Long term (current) use of oral hypoglycemic drugs; W18.30XA Fall on same level, unspecified, initial encounter; Y92.009 Unspecified place in unspecified non-institutional (private) residence as the place of occurrence of the external cause; S80.212A Abrasion, left knee, initial encounter; S90.811A Abrasion, right foot, initial encounter; E86.0 Dehydration; E87.6 Hypokalemia; E87.5 Hyperkalemia; Z86.73 Personal history of transient ischemic attack (TIA), and cerebral infarction without residual deficits
CPT/HCPCS: 31720; 36415; 36600; 71045-TC; 76700-TC; 80048-TC; 80053-TC; 80061-TC; 80076-TC; 80202-TC; 81001; 82140-TC; 82570-TC; 82607-TC; 82728-TC; 82803-TC; 82962-TC; 83540-TC; 83735-TC; 83935-TC; 84100-TC; 84300-TC; 84439-TC; 84443-TC; 84478-TC; 85027-TC; 86317; 86704; 86850-TC; 87040-TC; 87070-TC; 87081-TC; 87086-TC; 87205-TC; 87340; 90935-TC; 92526; 92611; 93970-TC; 93971-TC; 94003-TC; 94761-TC; 94799-TC; 97110-TC; 97116-TC; 97530-TC; 97535-TC; A4216; A4223; A6213; A6403; A9563; G0378; J0330; J0612; J0692; J0696; J1720; J1815; J2185; J2470; J2919; J3373; J3374; J3490; J7030; J7040; J7050; J7060; J7070; P9047